=== PATIENT | male | born 1970 | race Caucasian/White ===

== ENCOUNTER 2019-07-21 06:23 | Observation (INO) ==
--- NOTE | 2019-07-12 13:17 | PAT Medication Instructions ---
Medication Instructions Date of Service July 12, 2019 Home Medications Medical Cannabis 1 dose UD Take morning of surgery With a small sip of water, OTHERWISE NOTHING TO EAT OR DRINK AFTER MIDNIGHT: Medical Cannabis 1 dose UD (if needed) Other Notes If you have any questions please call us at [phone] or [phone] or [phone] or [phone]
--- NOTE | 2019-07-13 14:12 | Anesthesiology Consultation ---
Date of Service July 13, 2019 Assessment & Plan (1) Encounter for pre-operative examination: Chart Review Chart Review: Acceptable Risk for Surgery (pending confirmed ekg) and Patient seen in Pre Admission Testing Teaching & Discussion Instructed NPO after midnight before surgery, except medications with 15 cc of water. Medication instructions provided according to the PAT guidelines. History Surgery Operation Date: 07/21/19 08:05 Proposed Procedures p Transurethral Resection of Bladder Tumor with or without Multiple Cup Biopsies of the Bladder, possible Mitomycin C - Manny Bustillo MD Height/Weight Height: 5 ft 6 in Weight: 62.5 kg Allergies Allergy/AdvReac Type Severity Reaction Status Date / Time No Known Allergies Allergy Verified 07/08/19 13:40 Medications Home Medications Medication Instructions Recorded Confirmed Last Taken Medical Marijuanna 1 dose UD 07/08/19 07/08/19 Unknown Past Medical History Medical History (Updated 07/13/19 @ 14:21 by Mandeep Hilliard) Anxiety Medical cannabis HS/PRN Hematuria BLADDER 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 CHRONIC BACK PAIN AND USES [employer] AND WILL BRING IN CARD Exercise / Class Metabolic Activity II 4-5 Yardwork/Stairs/Walk up hill (Denies CP or SOB with 1 FOS) Past Surgical History Surgical History No history of previous surgery Past Anesthesia History No Family Hx of Anesthesia Complications History of PONV No Hx of Motion Sickness Social History tobacco type: cigarettes Smoking cigarettes per day: 10-12 per day, weaning down Do You Dip or Chew Tobacco: No Smoking End Date: ATTEMPTING TO QUIT Hx Alcohol Use: Yes Alcohol Intake Frequency Comment: h/o heavy use, now occasional Hx Substance Use: Yes substance use type: marijuana (medical) Last Used Substance Other:: HAS A [employer] CARD Review of Systems Pt denies any recent chest pain, shortness of breath, palpitations, cough, fever or URI. Physical Exam Vital Signs BP: 152/92 P: 61bpm SPO2: 93% RA T: 98.5 F R: 12 ENMT Mouth: + dental restorations (full upper), + chipped teeth (bottom L molar) and + loose teeth (lower incisors, can wiggle with tongue) Thyromental Distance: < 3.5 Finger Breadths (3) Mallampati Class: I Neck normal visual inspection; neck extension not limited Respiratory normal respiratory effort Auscultation: lungs clear to auscultation bilaterally Cardiovascular Rate/Rhythm: regular rate and regular rhythm Heart Sounds: no murmur Testing Laboratory Results 07/13/19 14:02 07/13/19 14:02 Urine Color Yellow 07/13/19 14:02 Urine Appearance Clear (Clear) 07/13/19 14:02 Urine pH 6.0 (4.5-7.5) 07/13/19 14:02 Ur Specific [place] > 1.045 (1.000-1.030) H 07/13/19 14:02 Urine Protein Negative (Negative) 07/13/19 14:02 Urine Glucose (UA) Negative (Negative) 07/13/19 14:02 Urine Ketones Negative (Negative) 07/13/19 14:02 Urine Nitrite Negative (Negative) 07/13/19 14:02 Ur Leukocyte Esterase Negative (Negative) 07/13/19 14:02 Blood Type A Positive 07/13/19 14:02 Antibody Screen NEGATIVE 07/13/19 14:02 07/13/19 14:02 Urine Culture - Preliminary Urine,Clean Catch No growth - Less than 1,000 colonies/mL, Final report to follow. Electrocardiogram Date: 07/13/19 Findings: + SB @ (55bpm) Minimal voltage criteria for LVH, may be normal variant. Chest X-Ray Date: 07/13/19 Findings: + NAD
--- NOTE | 2019-07-13 14:39 | XRay Report ---
XR chest Pre-admission PA/Lat CLINICAL HISTORY: Preoperative evaluation. COMPARISON STUDY: No previous studies for comparison. FINDINGS: Lung volumes are normal. Lungs are clear. There is no pneumothorax or pleural effusion. Car diac size is normal. Mediastinal contours are normal. There is no evidence for pulmonary edema. Contr ast within visualized portions of the collecting systems is from recent contrast-enhanced CT. There i s an old healed mid shaft fracture of the right clavicle. Nipple shadows project over each hemithorax . IMPRESSION: No acute cardiopulmonary findings. ACT 112: Negative or not required by law. Electronically signed by: Dave Yeh M.D. 07/13/2019 2:38 PM
[2019-07-13 15:36] LABS: Appearance Urine Clear (Clear); Bilirubin Urine Negative (Negative); Blood Urine Negative (Negative); Color Urine Yellow; Glucose Urine UA Negative (Negative); Ketones Urine Negative (Negative); Leukocyte Esterase Urine Negative (Negative); Nitrite Urine Negative (Negative); Protein Urine Negative (Negative); Specific Gravity Urine > 1.045 (1.000-1.030); Urobilinogen Urine Negative (Negative)
[2019-07-13 15:44] LABS: BUN Creatinine Ratio 12.8 (10-20); Calcium 9.2 mg/dl (8.5-10.1); Creatinine Clr Calc Pharmacy 87.8 ml/min; Est GFR (African American) 115.1; Est GFR (Non-African American) 99.3; Potassium 4.4 mmol/L (3.5-5.1)
[2019-07-13 16:08] LABS: Basophils # (auto) 0.03 K/uL (0-0.2); Basophils % (auto) 0.3 %; Eosinophils # (auto) 0.15 K/uL (0-0.5); Eosinophils % (auto) 1.7 %; Hematocrit (blood only) 50.5 % (42-52); Hemoglobin 17.9 g/dL (14.0-18.0); Immature Granulocytes # (auto) 0.01 K/uL (0.00-0.02); Immature Granulocytes % (auto) 0.1 %; Lymphocytes # (auto) 2.58 K/uL (1.2-3.4); Lymphocytes % (auto) 28.8 %; Mean Corpuscular Hemoglobin 32.5 pg (25-34); Mean Corpuscular Hgb Conc 35.4 g/dL (32-36); Mean Corpuscular Volume 91.7 fL (80-100); Mean Platelet Volume 10.1 fL (7.4-10.4); Monocytes % (auto) 6.7 %; Neutrophils # (auto) 5.59 K/uL (1.4-6.5); Neutrophils % (auto) 62.4 %; Platelet Count 239 K/uL (130-400); RDW Standard Deviation 47.4 fL (36.4-46.3); Red Blood Count 5.51 M/uL (4.7-6.1); White Blood Count 8.96 K/uL (4.8-10.8)
--- NOTE | 2019-07-13 23:45 | Electrocardiogram Report ---
Test Reason : Blood Pressure : / mmHG Vent. Rate : 055 BPM Atrial Rate : 055 BPM P-R Int : 152 ms QRS Dur : 090 ms QT Int : 438 ms P-R-T Axes : 078 076 066 degrees QTc Int : 419 ms Sinus bradycardia Minimal voltage criteria for LVH, may be normal variant Borderline ECG No previous ECGs available Confirmed by Rao Dorsey ([id number]) on 07/13/2019 11:44:35 PM Referred By: Manny Bustillo Confirmed By:Rao Dorsey
[~2019-07-21 06:23] MED LIST: GENTAMICIN SULFATE 80 MG in DEXTROSE 5% 100 ML IV SCH; LR 15ML/HR IV SCH
--- NOTE | 2019-07-21 07:11 | History & Physical Bridge Note ---
Date of Service July 21, 2019 History & Physical Bridge Note I have examined the patient, reviewed the History & Physical and in the interval since the performance of the History & Physical I have noted the following changes of clinical significance: no changes noted
[2019-07-21] MEDS ORDERED: LIDOCAINE HCL 2% 2 ML VIAL/AMP(20MG/ML) INFIL ONE (08:32)
[2019-07-21] MEDS ORDERED: DEXAMETHASONE SOD INJ 4 MG/ML VIAL ONE (08:32)
[2019-07-21] MEDS ORDERED: ONDANSETRON INJ 2 MG/ML 2 ML VIAL ONE (08:32)
[2019-07-21] MEDS ORDERED: PROPOFOL IV EMULSION 10 MG/ML 20 ML VIAL IV ONE (08:32)
[2019-07-21] MEDS ORDERED: fentaNYL citrate 100 MCG/2 ML VIAL ONE ×2 (08:32→09:36)
[2019-07-21] MEDS ORDERED: MIDAZOLAM HCL 1 MG/ML 2ML VIAL ONE (08:33)
[2019-07-21] MEDS ORDERED: SUCCINYLCHOLINE CHLORIDE 20 MG/ML 10 ML VIAL ONE (09:09)
[2019-07-21] MEDS ORDERED: ROCURONIUM BROMIDE 10 MG/ML 5 ML VIAL ONE (09:09)
[2019-07-21] MEDS ORDERED: LARYING-O-JET KIT (LTA) ONE (09:24)
[2019-07-21] MEDS ORDERED: BELLADONNA/OPIUM SUPP 60 MG SUPP PR ONE (10:10)
--- NOTE | 2019-07-21 10:16 | Post Operative Brief Note ---
PG Immediate Post Op with CF Date of Surgery July 21, 2019 Pre & Post Diagnosis Operation Date: 07/21/19 08:15 Pre-Op Diagnosis: Gross Hematuria, Bladder Mass Post-Op Diagnosis: Gross Hematuria, Bladder Mass I identified the patient and participated in the time-out.: Yes Procedure Operation Date: 07/21/19 08:15 Actual Procedures p Transurethral Resection of Bladder Tumor with Multiple Cup Biopsies of the Bladder(Not Applicable) - Manny Bustillo MD Surgeon Manny Bustillo MD [employer] none Estimated Blood Loss 30 Findings Consistent with Post-Op Diagnosis Specimens Specimen Description: A: Superficial Bladder Tumor B. Base Bladder Tumor
[2019-07-21] MEDS ORDERED: ePHEDrine sulfate 50 MG/ML AMP IV PRN (11:02)
[2019-07-21] MEDS ORDERED: ATROPINE SULFATE 0.1 MG/ML 10ML SYR IV PRN (11:02)
[2019-07-21] MEDS ORDERED: fentaNYL citrate 100 MCG/2 ML VIAL IV PRN (11:02)
[2019-07-21] MEDS ORDERED: ONDANSETRON INJ 2 MG/ML 2 ML VIAL IV PRN (11:33)
[2019-07-21] MEDS ORDERED: ACETAMINOPHEN 325 MG TAB PO PRN (11:33)
[2019-07-21] MEDS ORDERED: PHENAZOPYRIDINE HCL 200 MG TAB PO PRN (11:33)
[2019-07-21] MEDS ORDERED: OXYCODONE HCL IR 5 MG TAB (IMMEDIATE RELEASE) PO PRN ×2 (11:33)
[2019-07-21] MEDS ORDERED: MoRPHine SULFATE 4 MG/ML 1 ML CARP\\VIAL IV PRN (11:39)
--- NOTE | 2019-07-21 11:46 | Anesthesiology Progress Note ---
Date of Service July 21, 2019 Anesthesia Post Procedure Vital Signs Vital Signs: Temp Pulse Pulse Resp BP BP Pulse Ox 07/21/19 11:15 36.4 C L 56 L 16 111/73 95 07/21/19 11:05 59 L 20 110/74 95 07/21/19 10:55 76 20 113/76 97 07/21/19 10:45 62 20 120/83 95 07/21/19 10:35 66 16 123/89 100 07/21/19 10:29 36.2 C L 69 19 133/91 100 07/21/19 07:00 36.6 C 58 L 18 121/77 99 Transfer of Care Handoff Completed per policy Notes Mental Status: alert / awake / arousable and participated in evaluation Patient Amnestic to Procedure: Yes Nausea / Vomiting: adequately controlled Pain: adequately controlled Airway Patency, RR, SpO2: stable & adequate BP & HR: stable & adequate Hydration State: stable & adequate Anesthetic Complications: no major complications apparent and Pt Satisfied with anesthetic care
[2019-07-21] MEDS: LACTATED RINGER'S 1,000 ML IV SCH ×2 (12:05→17:29)
--- NOTE | 2019-07-21 12:34 | Operative Report ---
DATE OF OPERATION: 07/21/2019 PREOPERATIVE DIAGNOSIS: Bladder mass. POSTOPERATIVE DIAGNOSIS: Bladder mass. PROCEDURE PERFORMED: TURBT. HISTORY OF PRESENTATION: The patient is a 48-year-old male who has had hematuria off and on for over 9 months, who presents now for definitive treatment after having cystoscopy in my office. I did schedule for TURBT prior to a CAT scan which was performed and did show a renal lesion that was consistent with an adenoma 2.3 cm on the left side. He also had a question of something in the upper pole ureter that was low suspicion by the radiologist and will be followed with a followup CT scan to assess the adrenal gland. DESCRIPTION OF THE PROCEDURE: The patient was taken to the operating room where general anesthesia was administered. He had Venodyne stockings placed prior to this and was given gentamicin prior to this. He was placed in dorsal lithotomy position, prepped and draped in the usual sterile fashion. A cystoscope was passed to assess the bladder tumor which appeared to be about 3 cm in diameter and somewhat sessile. This ureteral orifices were not involved, although was in the posterior wall of the bladder. Resection was performed, then cup biopsy forceps were taken at the base of the tumor. Multiple cup biopsy forceps were taken to try to avoid cautery effect to make sure we got some muscle in the specimen that we did not have cautery effect. There were several bleeders during the course of these biopsies that were fulgurated. At the end of the procedure, there was no evidence of any significant bleeding. Photos were taken pre and post-procedure and the patient had a 22-Malay Silva catheter placed. Urine was clear and he was transferred to the recovery room in stable condition. I attest to the content of the Intraoperative Record and any orders documented therein. Any exception s are noted below.
[2019-07-21] MEDS: DOCUSATE SODIUM 100 MG CAP PO SCH (20:26)
[2019-07-21] MEDS: FAMOTIDINE 10 MG TABLET PO SCH (20:26)
[2019-07-21] MEDS: CIPROFLOXACIN 500 MG TAB PO SCH (20:26)
[2019-07-21] MEDS: MoRPHine SULFATE 2 MG/ML CARP IV PRN (20:34)
[2019-07-22] MEDS: LACTATED RINGER'S 1,000 ML IV SCH (00:43)
[2019-07-22] MEDS: MoRPHine SULFATE 2 MG/ML CARP IV PRN (00:54)
[2019-07-22 05:49] LABS: Hematocrit (blood only) 44.9 % (42-52); Hemoglobin 15.6 g/dL (14.0-18.0)
--- NOTE | 2019-07-22 07:36 | Anesthesiology Progress Note ---
Date of Service July 22, 2019 Anesthesia Post Procedure Vital Signs Vital Signs: Temp Pulse Pulse Pulse Resp BP BP 07/22/19 07:26 36.7 C 51 L 14 121/77 07/22/19 03:08 36.8 C 55 L 14 112/63 07/21/19 23:07 36.8 C 60 14 126/68 07/21/19 19:11 37 C 51 L 16 125/69 07/21/19 15:23 36.7 C 57 L 16 120/73 07/21/19 13:30 54 L 16 125/76 07/21/19 12:32 57 L 16 117/69 07/21/19 12:09 48 L 16 122/76 07/21/19 11:30 36.4 C L 54 L 15 115/76 07/21/19 11:15 36.4 C L 56 L 16 111/73 07/21/19 11:05 59 L 20 110/74 07/21/19 10:55 76 20 113/76 07/21/19 10:45 62 20 120/83 07/21/19 10:35 66 16 123/89 07/21/19 10:29 36.2 C L 69 19 133/91 Pulse Ox 07/22/19 07:26 96 07/22/19 03:08 93 07/21/19 23:07 94 07/21/19 19:11 96 07/21/19 15:23 95 07/21/19 13:30 97 07/21/19 12:32 96 07/21/19 12:09 96 07/21/19 11:30 07/21/19 11:15 95 07/21/19 11:05 95 07/21/19 10:55 97 07/21/19 10:45 95 07/21/19 10:35 100 07/21/19 10:29 100 Pain Intensity Penis: Pain Intensity: 3 Notes Mental Status: alert / awake / arousable and participated in evaluation Patient Amnestic to Procedure: Yes Nausea / Vomiting: adequately controlled Pain: adequately controlled Airway Patency, RR, SpO2: stable & adequate BP & HR: stable & adequate Hydration State: stable & adequate Anesthetic Complications: Pt Satisfied with anesthetic care
[2019-07-22] MEDS: CIPROFLOXACIN 500 MG TAB PO SCH (08:39)
[2019-07-22] MEDS: FAMOTIDINE 10 MG TABLET PO SCH (08:39)
[2019-07-22] MEDS: DOCUSATE SODIUM 100 MG CAP PO SCH (08:39)
--- NOTE | 2019-07-22 08:41 | Urology Progress Note ---
Date of Service July 22, 2019 Assessment & Plan (1) Bladder mass: 48 year-old male status post TURBT on 07/21/[address] Bustillo due to bladder mass. -POD #1 s/p TURBT -Doing well without complications. -Continue oral hydration and ambulation. -D/C puri catheter this am. -If pain controlled and voiding without difficulty, plan to discharge home today. -Follow-up appointment scheduled August 02, [address] Bustillo. -Patient in agreement with plan. (2) Gross hematuria: Subjective 48 year-old male patient POD #1 TURBT due to bladder mass and gross hematuria. Chart reviewed: Afebrile WBC 8.96 Hgb 15.6 Creatinine 0.91 Morphine IV administered for pain. Patient alert and feeling well today. Tolerating regular diet without nausea, vomiting, or diarrhea. Denies fevers or chills. States he was up ambulating independently without dizziness. Pain is rated a 3 out of 10 in his medial abdomen. Does report discomfort in tip of penis due to Puri catheter - required IV morphine overnight to help with this. Denies hematuria. He is requesting to be discharged today. Denies additional concerns at time of examination. Review of Systems Constitutional: as per Subjective / HPI; no fever and no chills Gastrointestinal: as per Subjective / HPI; no nausea and no vomiting Genitourinary: + as per Subjective / HPI Physical Exam Constitutional: well developed and well nourished; no acute distress and not ill appearing Respiratory: normal respiratory effort and able to speak in complete sentences; no respiratory distress and no audible wheezes Gastrointestinal (Abdomen): Inspection/Auscultation: abdomen normal to inspection; abdomen not distended Percussion/Palpation: abdomen soft; abdomen nontender and no guarding Psychiatric: Orientation: alert, oriented x 3 and cooperative Affect: euthymic affect Genitourinary: no CVA tenderness Puri catheter intact draining clear yellow urine. Results & Data Vital Signs (Past 12 Hours) Vital Signs Temp Pulse Resp BP Pulse Ox 07/22/19 07:26 36.7 C 51 L 14 121/77 96 07/22/19 03:08 36.8 C 55 L 14 112/63 93 07/21/19 23:07 36.8 C 60 14 126/68 94 PG Care Time/CCT Total # of Minutes Spent Total Time Spent with Patient: Total time spent is greater than 50% in coordination of care (as documented) at patient's floor/unit and/or counseling patient: Coding Level of Care Code None Diagnoses Bladder mass N32.89 Gross hematuria R31.0 Comment postop
--- NOTE | 2019-07-22 12:35 | Discharge Summary ---
Date of Service July 22, 2019 Admission HPI Per Admitting Provider Gross hematuria with bladder mass Principal Diagnosis Bladder mass Discharge Data Allergies Allergy/AdvReac Type Severity Reaction Status Date / Time No Known Allergies Allergy Verified 07/21/19 06:58 Procedures Performed Operation Date: 07/21/19 08:15 Actual Procedures p Transurethral Resection of Bladder Tumor with Multiple Cup Biopsies of the Bladder(Not Applicable) - Manny Bustillo MD Hospital Course (1) Bladder mass: Admitted status post cystoscopy and TURBT - see operative note for details. Uneventful course during hospital stay. Silva catheter overnight - passed voiding trial. Discharged home on POD#1. Total Time Total Time Spent Total Time Spent (In Minutes): 10 minutes Total Time Includes: Examination of the Patient and Discharge Planning Discharge Plan Discharge Items Patient Disposition: Home - Self-Care Reason For Visit: Gross Hematuria, Bladder Mass Discharge Diagnosis: Gross hematuria, bladder mass Condition on Discharge: Good Activity: Resume your previous activity Lifting: No more than 25 pounds Bathing: No limitations Sexual Activity: Wait until after follow-up appointment Exercise/Sports: Wait until after follow-up appointment Driving/Machine Use: Do not drive while taking prescription narcotics. Non-emergency contact: Primary Care Provider and Urologist Call non-emergency contact if: you have any medication questions, your pain is not controlled, your pain is concerning for you and your temperature is above 101.5 Follow-up/Referrals: Manny Bustillo MD [Physician] - 08/02/19 4:40 pm Morro De Guzman M.D. [Primary Care Provider] - Diet: Regular Addtl Attending Provider Instructions: Please take all medications as prescribed and keep all follow-ups as scheduled. Please call our office at [phone] with any questions, concerns or need to reschedule appointments for any reason. We are happy to assist you. Tips for your recovery at home: Dont be alarmed by brownish or reddish blood or clots in your urine. This is a result of the procedure. However, if this does not improve after 1 week, please contact our office. Drink plenty of fluids during the day (enough to keep your urine very light colored). This will help keep a healthy flow of urine. Do not lift >25 lbs until your followup Avoid constipation. Please use a stool softener (Colace) for the first two weeks after your procedure Be sure to finish the antibiotics as prescribed. If you go home with a catheter, please wash tubing where it enters your body twice daily with mild soap (Dove or Dial). Once your catheter is removed, expect some blood in your urine and some burning when you urinate. You should have an appointment to have this removed, if you do not please call our office to arrange. When to call [facility] at [phone]: Your urine contains heavy blood clots You are constantly leaking urine Fever of 101F or higher, chills, nausea, or vomiting Your pain is not relieved with medication Pending Studies at Discharge: Yes Studies:: Pathology Stand-Alone Forms: [facility], Opioid Pain Management, Smoking Cessation Medications and DC Order Prescriptions: New oxycodone-acetaminophen [Percocet] 5-325 mg tablet 1 tab PO TID PRN (Reason: pain) Qty: 6 RF: 0 docusate sodium [Colace] 100 mg capsule 100 mg PO BID Qty: 60 RF: 0 nitrofurantoin monohyd/m-cryst [Macrobid] 100 mg capsule 100 mg PO BID 5 Days Qty: 10 RF: 0 Continued Medical Marijuanna 1 dose UD RF: 0 Discharge Orders: Discharge Order (Routine); Ordered 07/22/19 Ordered By: Barbara Phillip/Other Patient Handouts: Surgery Prevent DVT After Admission Data Admit Date/Time: 07/21/19 09:30 Attending Provider: Manny Bustillo Admit Provider: Manny Bustillo Primary Care Provider: Morro De Guzman Other Interventions: Discharge Summary Assessment (RN) Last Done: 07/22/19 12:15 Coding Level of Care Code D/C Day Management <30 mins Diagnoses Bladder mass N32.89
== END 2019-07-22 12:54 | disposition home or self-care (01) ==
LOC: PAT 06:23 → INTOOBSV 09:30 → 3W 09:30

== ENCOUNTER 2020-03-04 20:50 | Inpatient (IN) ==
--- NOTE | 2020-03-04 21:13 | Emergency Department Note ---
Impression & Plan Cystitis, Hydroureteronephrosis, Leukocytosis, Encounter for smoking cessation counseling ED Provider Note NAME: LYDIA JASMINE AGE: 49 SEX: M : 1970 ARRIVES VIA: Walk-In INFORMANT: Patient, ED PROVIDER(S): Bong Espinosa MD Chief Complaint: Groin pain, constipation HPI: Patient does present with groin pain and constipation. Patient states that he has had some symptoms for approximately 8 weeks. The patient states initially he did have some groin pain and some associated constipation. Patient states he was treated by his primary surgeon who Hever who constructed he is neobladder and was completed a course of ciprofloxacin which would have been completed approximate 4 weeks ago. The patient did have abatement of his symptoms but they have progressively returned and gotten worse to where he does have some right-sided lower quadrant and groin discomfort. Patient denies any fevers or chills. Patient states that he has been urinating reasonably well. The patient does have occasional bouts of incontinence at nighttime but does have normal sensation during the day. Patient does admit to having some decreased stools. The patient has tried to take by mouth mag citrate and MiraLAX but this is caused him to vomit. Patient denies any recent trauma to the area. The patient does complain of some occasional soreness in his lower abdomen but denies any testicular or penile scrotal pain or swelling. Patient denies any bulges or masses noted over the abdomen. The patient does follow-up with Dr. Bustillo locally as well as his primary surgeon in [place]. ROS: See HPI for pertinent positives and negatives. A total of 10 systems were reviewed and otherwise negative. Past medical history: See below Surgical history: See below Social history: See below Physical Exam: GENERAL: Wearing a mask. NAD, non-toxic. EYE EXAM: Normal conjunctiva. PERRL, no anisocoria and EOM's grossly intact w/o pain. NECK: Supple, no nuchal rigidity, no adenopathy, non-tender. No signs of meningismus. LUNGS: Clear to auscultation. Normal chest wall mechanics. HEART: NSR, no MRG. ABDOMEN: Abdomen soft, right lower quadrant/groin discomfort without obvious bulges or masses noted, not peritonitic, negative obturator and psoas normo- active bowel sounds, no masses, no rebound or guarding. : Circumcised with no tenderness or swelling to the scrotum/testicles. BACK: No CVA TTP. SKIN: No rashes and no bruising. UPPER EXTREMITIES: Upper extremities are grossly normal. LOWER EXTREMITIES: Grossly normal, no edema. NEURO EXAM: A&O x3, cranial nerves II-XII grossly intact, normal speech, moves all 4 extremities on command w/o issue. Differential diagnoses: Appendicitis, testicular torsion, infections, diverticulitis, UTI, obstruction, mesenteric ischemia, aortic pathology, inflammatory bowel disease, renal colic, PUD, pancreatitis, biliary pathology, hernia, volvulus, constipation, as well as other pathologies. Course: Patient was seen and evaluated the bedside. Full history physical exam was performed. EKG: None Imaging Studies: CT abdomen pelvis with contrast: Mild atelectasis with normal liver spleen pancreas and gallbladder. Left adrenal mass noted which is stable. New interval left-sided hydroureteronephrosis. Postoperative changes seen within the mid abdomen. Mild diffuse distention of small bowel loops and cannot exclude ileus. Left ureter is seen traversing midline branches of the right to right sided ileal loop correlation with ureteral diversion surgery recommended. The left ureter seen with tip on images 5 [id number] and high density at this level cannot exclude a stricture or recurrent mass. Surgical clips demonstrated at the level of the pelvis, small bowel loops. Fluid collection suggested to represent urinary bladder seen. However if there has been prior resection of urinary bladder than this represent fluid collection or abscess not excluded. Unusual loop of small bowel or fluid collection at the level of the pelvis correlation with the type and time of surgery recommended. Degenerative disease at L5-S1 remainder of pelvic structures unremarkable. Cardiac monitoring: An order was placed for continuous cardiac monitoring. The monitor shows a rate of 89 with sinus rhythm. MDM: Patient was seen due to concern for groin/abdominal pain. Blood work was obtained along with urinalysis and CT abdomen pelvis. Patient does have a white count of 19 with a hemoglobin of 12. Platelet count is somewhat elevated at 566. Patient's kidney function is unremarkable with normal LFTs and lipase. Patient CT does show left-sided hydro-nephrosis and hydroureter. I did speak the on-call urologist Dr. Dominguez and explained that the patient did have significant hydroureteronephrosis and with a recent neobladder. He did state that if the patient truly had a stricture causing obstruction that creatinine would likely be elevated. Discussed that the patient is still urinating. The patient does not have left-sided CVA tenderness palpation. Patient is not septic as the patient has a normal heart rate blood pressure and temperature. Dr. Dominguez does not believe the patient would require transfer at this time and that this would be something that could be managed at this hospital. The patient would require a ureteral stent this may require transfer for this or for the possibility of percutaneous nephrostomy tubes. He does not believe that this would be necessary at this time. Patient was ordered Zosyn for empiric coverage at this time until urine cultures are more definitive. I did speak with the on-call hospitalist Dr. Davila who admitted the patient to the medicine service. I counseled patient on smoking cessation for 3 minutes. Treatment options discussed and resources provided. Patient was receptive. Past Med/Surg History Medical History Anxiety Medical cannabis HS/PRN Chronic back pain D/T HISTORY OF HERNIATED LOWER BACK Current smoker Hematuria Herniated disc HAD THIS FOR OVER 20 YEARS CHRONIC BACK PAIN AND USES MEDICAL MARIJUANNA AND WILL BRING IN CARD Insomnia Medical marijuana use Port-A-Cath in place (09/02/19) Mediport Insertion Dr. 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 Required: No Beliefs That Will Affect Care: None marital status: Current Living Situation: Family current occupational status: employed current occupation: [employer] Feels Safe at Home: Yes Allergies Allergies Allergy/AdvReac Type Severity Reaction Status Date / Time No Known Allergies Allergy Verified 03/04/20 22:37 Home Meds Home Medications Medication Instructions Recorded Confirmed acetaminophen [Tylenol Extra 1,000 mg PO Q6H PRN 12/20/19 03/04/20 Strength] Marijuana Flower/Vap 1 dose INHALATION UD PRN 03/04/20 03/04/20 Tintress Oil 1 dose PO BID 03/04/20 03/04/20 Results & Data (ED) Vital Signs Vital Signs - 24 hr 03/04/20 21:01 03/04/20 22:04 03/04/20 22:30 Temperature 37.2 C Temperature Source Oral Pulse Rate 89 70 72 Pulse Rate from SpO2 Sensor 70 72 Pulse Rhythm Regular Pulse Strength Normal Respiratory Rate 16 16 15 Respiratory Effort / Characteristics Non-Labored Respiratory Depth Normal Respiratory Pattern Regular Blood Pressure 122/82 120/73 110/77 Blood Pressure Mean 95 84 86 Blood Pressure Position Sitting Pulse Oximetry 97 96 98 Oxygen Delivery Method Room Air Room Air Sepsis Recent Fever Within 48 Hours No Sepsis New/Unexplained Change in Mental Status N/A Sepsis Action Taken by Nursing No Action Required 03/04/20 23:00 03/04/20 23:30 03/05/20 00:00 Temperature Temperature Source Pulse Rate 72 70 71 Pulse Rate from SpO2 Sensor 72 70 71 Pulse Rhythm Pulse Strength Respiratory Rate 24 24 24 Respiratory Effort / Characteristics Respiratory Depth Respiratory Pattern Blood Pressure 124/79 113/71 115/74 Blood Pressure Mean 83 83 88 Blood Pressure Position Pulse Oximetry 97 97 98 Oxygen Delivery Method Room Air Room Air Room Air Sepsis Recent Fever Within 48 Hours Sepsis New/Unexplained Change in Mental Status Sepsis Action Taken by Halfway Medications Current Medication List: was personally reviewed by me Laboratory Data Attestation: I reviewed the patient's lab results. Result diagrams: 03/04/20 21:45 03/04/20 21:45 Lab Results 03/04/20 03/04/20 03/04/20 Range/Units 21:45 21:45 23:10 WBC 19.79 H (4.8-10.8) K/uL RBC 4.65 L (4.7-6.1) M/uL Hgb 12.7 L (14.0-18.0) g/dL Hct 38.2 L (42-52) % MCV 82.2 (80-100) fL MCH 27.3 (25-34) pg MCHC 33.2 (32-36) g/dL RDW Std Deviation 49.4 H (36.4-46.3) fL RDW Coeff of Richard 16.3 H (11.5-14.5) % Plt Count 566 H (130-400) K/uL MPV 8.7 (7.4-10.4) fL Immature Gran % (Auto) 0.5 % Neut % (Auto) 84.5 % Lymph % (Auto) 7.7 % [place] % (Auto) 6.6 % Eos % (Auto) 0.6 % Baso % (Auto) 0.1 % Neut # (Auto) 16.73 H (1.4-6.5) K/uL Lymph # (Auto) 1.53 (1.2-3.4) K/uL Pacific # (Auto) 1.30 H (0.11-0.59) K/uL Eos # (Auto) 0.12 (0-0.5) K/uL Baso # (Auto) 0.02 (0-0.2) K/uL Immature Gran # (Auto) 0.09 H (0.00-0.02) K/uL Sodium 133 L (136-145) mmol/L Potassium 3.5 (3.5-5.1) mmol/L Chloride 98 (98-107) mmol/L Carbon Dioxide 25 (21-32) mmol/L Anion Gap 10.0 (3-11) BUN 19 H (7-18) mg/dl Creatinine 1.09 (0.6-1.4) mg/dl Est Cr Clr Drug Dosing 61.6 ml/min Est GFR ( Amer) 91.9 Est GFR (Non-Af Amer) 79.3 BUN/Creatinine Ratio 17.0 (10-20) Glucose 110 H (70-99) mg/dl Calcium 9.6 (8.5-10.1) mg/dl Total Bilirubin 0.4 (0.2-1) mg/dl AST 25 (15-37) U/L ALT 41 (12-78) U/L Alkaline Phosphatase 97 (45-117) U/L Total Protein 8.9 H (6.4-8.2) gm/dl Albumin 3.0 L (3.4-5.0) gm/dl Globulin 5.9 H (2.5-4.0) gm/dl Albumin/Globulin Ratio 0.5 L (0.9-2) Lipase 84 (73-393) U/L Urine Color Yellow Urine Appearance Turbid A (Clear) Urine pH 6.0 (4.5-7.5) Ur Specific [place] 1.015 (1.000-1.030) Urine Protein 1+ H (Negative) Urine Glucose (UA) Negative (Negative) Urine Ketones Negative (Negative) Urine Blood 2+ H (Negative) Urine Nitrite Positive A (Negative) Urine Bilirubin Negative (Negative) Urine Urobilinogen Negative (Negative) Ur Leukocyte Esterase 3+ H (Negative) Urine WBC (Auto) >30 H (0-5) /hpf Urine RBC (Auto) 0-4 (0-4) /hpf U Hyaline Cast (Auto) 0 (0-5) /lpf U Epithel Cells (Auto) 5-10 H (0-5) /lpf Urine Bacteria (Auto) 1+ H (Negative) Administered Medications Discontinued Medications Sodium Chloride (Nss) 500 mls @ 999 mls/hr IV .Q31M ANASTASIA Stop: 03/04/20 22:00 Last Infusion: 03/04/20 23:12 Dose: 0 mls/hr Documented by: [id number] Admin: 03/04/20 22:00 Dose: 999 mls/hr Documented by: [id number] Piperacillin Sod/Tazobactam Sod (Zosyn) 4.5 gm in 120 mls @ 240 mls/hr IV NOW ONE Stop: 03/05/20 00:10 Last Admin: 03/05/20 00:11 Dose: 240 mls/hr Documented by: [id number] Ioversol (Ioversol 100ml) 94 ml IV ONCE ONE Stop: 03/04/20 22:54 Last Admin: 03/04/20 22:54 Dose: 94 ml Documented by: [id number] Metoclopramide HCl (Metoclopramide Hcl Inj 5 Mg/Ml 2 Ml Vial) 10 mg IV NOW STA Stop: 03/04/20 21:25 Last Admin: 03/04/20 21:59 Dose: 10 mg Documented by: [id number] Morphine Sulfate (Morphine Sulfate 4 Mg/Ml 1 Ml Carp\Vial) 4 mg IV NOW STA Stop: 03/04/20 21:25 Last Admin: 03/04/20 21:59 Dose: 4 mg Documented by: [id number] Discharge Plan Visit Data Chief Complaint: GI Assessment Stated Complaint: STOMACH PAIN ED Provider: Jesús,Bong D. Discharge Problem: Cystitis, Hydroureteronephrosis, Leukocytosis, Encounter for smoking cessation counseling Forms Stand Alone Forms: [employer] Prescriptions Prescriptions: No Action Marijuana Flower/Vap 1 dose inhalation UD PRN (Reason: Anxiety) RF: 0 Tintress Oil 1 dose PO BID RF: 0 acetaminophen [Tylenol Extra Strength] 500 mg Tablet 1,000 mg PO Q6H PRN (Reason: Pain) RF: 0 Discharge Problem: Leukocytosis Qualifiers: Leukocytosis type: unspecified Qualified Code(s): D72.829 - Elevated white blood cell count, unspecified
[2020-03-04] MEDS ORDERED: METOCLOPRAMIDE HCL INJ 5 MG/ML 2 ML VIAL IV STA (21:24)
[2020-03-04] MEDS ORDERED: MoRPHine SULFATE 4 MG/ML 1 ML CARP\\VIAL IV STA (21:24)
[2020-03-04] MEDS ORDERED: SODIUM CHLORIDE 0.9% 500 ML IV SCH (21:30)
[2020-03-04 22:18] LABS: Basophils # (auto) 0.02 K/uL (0-0.2); Basophils % (auto) 0.1 %; Eosinophils # (auto) 0.12 K/uL (0-0.5); Eosinophils % (auto) 0.6 %; Hematocrit (blood only) 38.2 % (42-52); Hemoglobin 12.7 g/dL (14.0-18.0); Immature Granulocytes # (auto) 0.09 K/uL (0.00-0.02); Immature Granulocytes % (auto) 0.5 %; Lymphocytes # (auto) 1.53 K/uL (1.2-3.4); Lymphocytes % (auto) 7.7 %; Mean Corpuscular Hemoglobin 27.3 pg (25-34); Mean Corpuscular Hgb Conc 33.2 g/dL (32-36); Mean Corpuscular Volume 82.2 fL (80-100); Mean Platelet Volume 8.7 fL (7.4-10.4); Monocytes % (auto) 6.6 %; Neutrophils # (auto) 16.73 K/uL (1.4-6.5); Neutrophils % (auto) 84.5 %; Platelet Count 566 K/uL (130-400); RDW Coefficient of Variation 16.3 % (11.5-14.5); RDW Standard Deviation 49.4 fL (36.4-46.3); Red Blood Count 4.65 M/uL (4.7-6.1); White Blood Count 19.79 K/uL (4.8-10.8)
[2020-03-04 22:35] LABS: Calcium 9.6 mg/dl (8.5-10.1); Creatinine Clr Calc Pharmacy 61.6 ml/min; Est GFR (African American) 91.9; Est GFR (Non-African American) 79.3; Potassium 3.5 mmol/L (3.5-5.1)
[2020-03-04 22:38] LABS: Albumin Globulin Ratio 0.5 (0.9-2); Bilirubin,Total 0.4 mg/dl (0.2-1); Globulin 5.9 gm/dl (2.5-4.0); Total Protein 8.9 gm/dl (6.4-8.2)
[2020-03-04] MEDS ORDERED: IOVERSOL 100ml IV ONE (22:53)
[2020-03-04 23:27] LABS: Appearance Urine Turbid (Clear); Bacteria Urine Automated 1+ (Negative); Bilirubin Urine Negative (Negative); Blood Urine 2+ (Negative); Cast Urine Automated 0 /lpf (0-5); Color Urine Yellow; Glucose Urine UA Negative (Negative); Ketones Urine Negative (Negative); Leukocyte Esterase Urine 3+ (Negative); Nitrite Urine Positive (Negative); Protein Urine 1+ (Negative); RBC Urine Automated 0-4 /hpf (0-4); Specific Gravity Urine 1.015 (1.000-1.030); Urobilinogen Urine Negative (Negative); WBC Urine Automated >30 /hpf (0-5)
[2020-03-04] MEDS ORDERED: PIPERACILL/TAZOBAC CONSULT ACTIVE PRN (23:41)
[2020-03-04] MEDS ORDERED: PIPERACILLIN/TAZOBACTAM 4.5 GM/120 ML BAG IV ONE (23:41)
--- NOTE | 2020-03-05 02:02 | History & Physical Report ---
Date of Service March 05, 2020 Assessment & Plan (1) Cystitis: Pawan Wilson is a 49 year old man with bladder cancer s/p chemotherapy and bladder and prostatectomy and neobladder formation who is here today with abdominal pain and vomiting after eating Abdominal pain, nausea, vomiting, constipation Patient appears to have a prolonged post op ileus Will manage conservatively for now, does not appear to be a full SBO Will make NPo and rehydrate with LR at 125 for now sips of water okay If tolerating sips of water and ice chips can advance to clear liquids, then slowly advance as tolerated Patient not having a great deal of symptoms at the moment, no need for decompression at this time but discussed the option and possiblity of placing an NG tube with him. zofran prn for nausea, toradol for pain control (Will try to limit opiate pain medication to promote intestinal transit) Hydroureteronephrosis with Cystitis New since last scan severe Differential including stricture at newly created junction with neobladder or new mass. Creatinine still within normal limits, BUN slightly elevated likely secondary to dehydration from Ileus Urology contacted and wish to see patient tomorrow Zosyn for UTI Will hydrate with IV LR at 125/hour Bladder Cancer Patient is done with chemotherapy and surgery and is just in a surveillance state for now. CT showing mass on adrenal gland, which appears to be stable compared to previous exam Patient is doing better, feels stronger, has gone back to work F/E/N: LR 125 mls/hour sips of water DVT PPx: Lovenox Dispo: Admit for urology evaluation and conservative management of prolonged post op ileus Full Code (2) Hydroureteronephrosis: (3) Leukocytosis: (4) Encounter for smoking cessation counseling: (5) Medical marijuana use: (6) Current smoker: (7) Ileus: History of Present Illness Chief Complaint: Abdominal Pain and vomiting with food Primary Care Provider: Morro De Guzman Pawan Wilson is a 49 year old man with a past medical history significant for bladder cancer diagnosed in June of this year. He has undergone chemotherapy and neobladder creation in November of this year. This was done in [facility] who handle the majority of his care, though he lives in [facility] and comes here for emergent care. His goals of care are curative and according to his oncologist he is done with chemotherapy and will just need surveillance scans to determine if he will need subsequent doses. Since the time of his procedure he has been dealing with difficulty passing stool, he has not had a normal bowel movement since the procedure and frequently gets constipated and has pain with food intake. He has tried to use daily miralax for this which has been moderately helpful. Over past few days he has begun to have worsening fatigue and abdominal pain, he left work early on Thursday and since that time has had difficulty with food. On thursday night he had pizza but this immediately caused him burning stomach pain and cramping. This continued for sometime and he was not able to pass stool. On Thursday patient continued to have this discomfort, tried further miralax to little avail. He then attempted an enema this morning but was unsuccessful in relieving his discomfort. He tried further miralax but just had a large amount of bilious emesis about a half hour after trying his oral laxative. This was his only episode of vomiting and it did partially relieve his discomfort. He denies fevers or chills, does endorse some smaller volumes of urination but does also have some discomfort in his groin area. When he had a post op infection in the past he also had this discomfort in his right groin area. Currently he is resting comfortably and pain is greatly decreased though he does feel his abdomen is fairly taught and patient does endorse mild discomfort to both his abdomen and his right groin. on admission to ED vitals WNL, labwork significant for an elevated white count, urinalysis suspicious for UTI, hypoalbuminemia at 3.0, elevated BUN normal creatinine. CT abdomen Pelvis showing mild diffuse distension of the small bowel suggestive of ileus as well as new left hydroureteronephrosis. Possible stricture or recurrent mass appeciated at Ureteral tip. Patient was given morphine and reglan and was referred to hospitalist team for admission. He is a current smoker, though he is only smoking a quarter pack per day down from a pack a day prior to surgery. He did quit briefly but has since relapsed. He also uses marijuana for anxiety and pain control. Has not drinken more than once or twice since surgery but would have several drinks per week prior to his diagnosis in June. No other drug use, lives with , full code. Allergies Allergy/AdvReac Type Severity Reaction Status Date / Time No Known Allergies Allergy Verified 03/04/20 22:37 Home Medications Home Medications Medication Instructions Recorded Confirmed Type acetaminophen [Tylenol Extra 1,000 mg PO Q6H PRN 12/20/19 03/04/20 History Strength] Marijuana Flower/Vap 2 dose INHALATION UD PRN 03/04/20 03/05/20 History Tintress Oil 1 dose PO BID 03/04/20 03/04/20 History Past Med/Surg History Medical History Anxiety Medical cannabis HS/PRN Chronic back pain D/T HISTORY OF HERNIATED LOWER BACK Current smoker Hematuria Herniated disc HAD THIS FOR OVER 20 YEARS CHRONIC BACK PAIN AND USES MEDICAL MARIJUANNA AND WILL BRING IN CARD Insomnia Medical marijuana use Port-A-Cath in place (09/02/19) Mediport Insertion Dr. Raymundo 09-02-19 Restless leg syndrome Surgical History (Updated 03/05/20 @ 17:44 by Barron Bowman) H/O total cystectomy History of bladder replacement History of cystoscopy BLADDER TUMOR REMOVED 07/21/19 (+CANCER) History of prostatectomy Family History Grandfather Cancer Social History Smoking Status: Current every day smoker Tobacco Type: Cigarettes Cigarettes Per Day: 10-12; Second Hand Exposure: Yes; Hx Alcohol Use: Yes Alcohol type: beer Hx Substance Use: Yes Last Used Substance Other:: HAS A MEDICAL MARIJUANNA CARD Substance Use Type Other:: medical marijuana card Preferred Language: Ecuadorean Communication Ability: Effective 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: No Beliefs That Will Affect Care: None marital status: Current Living Situation: Spouse current occupational status: employed current occupation: [employer] Feels Safe at Home: Yes Safety Concerns: Feels Safe At This Time Review of Systems Constitutional: + fatigue and + anorexia; no fever and no chills Respiratory: no cough, no dyspnea and no wheezing Cardiovascular: no chest pain, no dyspnea, no dyspnea on exertion, no palpitations, no syncope and no edema Gastrointestinal: + abdominal pain (As above), + nausea, + vomiting and + constipation Genitourinary: + difficulty urinating and + urinary frequency; no dysuria Physical Exam Physical Exam: Constitutional: Constitutional: + thin; no acute distress, not ill appearing, no altered me ntal status, no behavioral limitations and no language barrier Eyes: PERRL, conjunctivae normal, anicteric sclerae ENMT: Dry mucus membranes Respiratory: normal respiratory effort, lungs clear to auscultation Cardiovascular: RRR, no murmur, no edema Gastrointestinal (Abdomen): Inspection/Auscultation: + abdomen distended and normal bowel sounds (Markedly decreased bowel sounds) Percussion/Palpation: + abdomen tender (Globally tender); no guarding and abdomen not rigid Musculoskeletal: no cyanosis or clubbing, extremities motor strength 5/5 Neurologic: PERRL, EOMI, accommodation nl, no face palsy, no dysarthria Genitourinary: no testicular masses, no penis abnormality Patient with some tenderness to right groin area, negative for hernia on testicular/inguinal exam. Results & Data Results & Data ([facility]) Vital Signs (Past 12 Hours) Vital Signs Temp Pulse Resp BP Pulse Ox 03/05/20 00:00 71 24 115/74 98 03/04/20 23:30 70 24 113/71 97 03/04/20 23:00 72 24 124/79 97 03/04/20 22:30 72 15 110/77 98 03/04/20 22:04 70 16 120/73 96 03/04/20 21:01 37.2 C 89 16 122/82 97 Supervising Physician Co-Signing Physician Notes Attending addendum: I have physically seen this patient, have supervised the medical residents activities, and agree with the H&P unless as otherwise noted. Assessment and Plan: UTI/new left hydroureteronephrosis/bladder cancer- Follow urine culture and sensitivity Continue Zosyn 4.5 g IV every 8 hours begun in the ED. LR at 125 mils per hour Consult urology Ileus/abdominal pain, nausea and vomiting- N.p.o. IV fluids as noted above Bowel prep Zofran 4 mg IV every 6 hours PRN Consider Relistor subcu Remainder orders and notations as noted Resident Activity Tracking Resident Involvement: Resident Care Provided Care Provided: Adult Hospital Medicine (1) Leukocytosis Leukocytosis type: unspecified Qualified Code(s): D72.829 - Elevated white blood cell count, unspecified
[2020-03-05] MEDS ORDERED: PIPERACILL/TAZOBAC CONSULT ACTIVE PRN (03:03)
[2020-03-05] MEDS ORDERED: ACETAMINOPHEN 500 MG TAB PO PRN (03:03)
[2020-03-05] MEDS ORDERED: ONDANSETRON INJ 2 MG/ML 2 ML VIAL IV PRN (03:03)
[2020-03-05] MEDS ORDERED: POLYETHYLENE (MIRALAX) 17 GM PACK PO PRN ×2 (03:03→14:19)
[2020-03-05] MEDS: LACTATED RINGER'S 1,000 ML IV SCH ×2 (04:05→10:57)
[2020-03-05] MEDS: PIPERACILLIN/TAZOBACTAM 3.375 GM in DEXTROSE 5% 100 ML IV SCH ×3 (06:06→21:07)
[2020-03-05] MEDS: KETOROLAC TROMETHAMINE 15 MG/ML VIAL IV PRN ×2 (08:26→13:54)
[2020-03-05] MEDS: ENOXAPARIN INJ 40 MG/0.4 ML SYR SQ SCH (08:27)
--- NOTE | 2020-03-05 08:28 | Urology Consultation ---
Date of Consultation March 05, 2020 Assessment & Plan (1) Hydroureteronephrosis: Patient with significant severe left-sided hydronephrosis with hydroureter going down to the neobladder orthotopic diversion. Patient has been approximately 3 months postop from the radical cystectomy and neobladder formation. He has continued ongoing intermittent issues with bowel and ileus concerns as well as significant fatigue and overall abdominal pain since the procedure. He has drastically improved over this time per the patient but continues to have some pelvic discomfort and frequently deals with bloating likely related to bowel issues. Patient admitted and treated with broad-spectrum IV antibiotics for coverage of possible urinary infection. Also being treated with supportive care. Agree with this time management. Patient's imaging was reviewed interpreted by myself. Patient has significant hydronephrosis on the left side difficult to determine if this is due to drainage/obstruction issue versus reflux. Discussed these issues and concerns with patient. Also concerning that possibly reflux would lead to an a sending pyelonephritis versus an obstruction causing pyelonephritis. Discussed different options and plans moving forward. Patient will likely need 7 to 14 days of antibiotic for management of infection. We will have to wait cultures and sensitivities and try to de-escalate once available. We will continue to monitor. If concerned hydronephrosis is contributing to issues and swallowing clearance of infection, would need to consider possibly neph tube as access in main orthotopic diversion can be extremely difficult. At this point patient's creatinine is stable and he does seem to be drastically improving on IV antibiotics. We will plan to continue to monitor. Call if any changes or issues. Patient's complicated medical and surgical history was reviewed and summarized above all imaging was reviewed interpreted by myself. (2) Complicated urinary tract infection: History of Present Illness Attending Physician: Barron Hinton DO History of Present Illness New consultation for patient with UTI/Pyelo, discomfort, and ill feelings. Patient with history of a invasive bladder cancer who underwent radical cystectomy with neobladder construction done at [facility]. Patient had this procedure approximately 3 months ago. He is still in the postoperative period and still undergoing majority of healing. Patient has intermittent abdominal discomfort with some bowel related issues. He has been dealing with on again off again pelvic pain which has been bothersome and comes and goes. Patient developed sudden onset of pain into flank going down and radiating into groin and back in waves comes and goes. Can be severe at times. Had some of this immediately postoperatively but has continued to have issues and bother. He states that he empties well with the neobladder without major problems or significant issue. He had recently been on Cipro for a UTI. Discussed and reviewed patient's family history for any history of issues, infections, and disease. Also, discussed patient's medical/surgery history especially related to any history of urinary issues or stone disease. Patient was admitted and is undergoing observation with broad spectrum IV antibiotics. Allergies Allergy/AdvReac Type Severity Reaction Status Date / Time No Known Allergies Allergy Verified 03/04/20 22:37 Home Medications Home Medications Medication Instructions Recorded Confirmed Type acetaminophen [Tylenol Extra 1,000 mg PO Q6H PRN 12/20/19 03/04/20 History Strength] Marijuana Flower/Vap 1 dose INHALATION UD PRN 03/04/20 03/04/20 History Tintress Oil 1 dose PO BID 03/04/20 03/04/20 History Patient History Medical History Anxiety Medical cannabis HS/PRN Chronic back pain D/T HISTORY OF HERNIATED LOWER BACK Current smoker Hematuria Herniated disc HAD THIS FOR OVER 20 YEARS CHRONIC BACK PAIN AND USES MEDICAL MARIJUANNA AND WILL BRING IN CARD Insomnia Medical marijuana use Port-A-Cath in place (09/02/19) Mediport Insertion Dr. Raymundo 09-02-19 Restless leg syndrome Surgical History History of cystoscopy BLADDER TUMOR REMOVED 07/21/19 (+CANCER) Family History Grandfather Cancer Social History Smoking Status: Current every day smoker Tobacco Type: Cigarettes Cigarettes Per Day: 10-12; Second Hand Exposure: Yes; Hx Alcohol Use: Yes Alcohol type: beer Hx Substance Use: Yes Last Used Substance Other:: HAS A MEDICAL MARIJUANNA CARD Substance Use Type Other:: medical marijuana card Preferred Language: Kyrgyz Communication Ability: Effective Radiator Repairer Required: No Beliefs That Will Affect Care: None marital status: Current Living Situation: Spouse current occupational status: employed current occupation: [employer] Feels Safe at Home: Yes Safety Concerns: Feels Safe At This Time Review of Systems Review of Systems: All systems reviewed & are unremarkable except as noted in HPI & below Physical Exam Physical Exam: General: Alert and oriented x 3 in no acute distress. Patient is mildly cachectic. HEENT: Normocephalic Atraumatic. Inspection normal. Cranial Nerves 2-12 Grossly intact. Nares are clear. Neck is supple. Normal inspection of face. Normal inspection of neck. Neurologic: No deficits on inspection. Baseline for motor function and sensory. Psychologic: Normal affect. Respiratory: Nonlabored. No use of accessory muscles. No tachypnea or dyspnea. Cardiovascular: No tachycardia Skin: Tebbetts and Dry. No rashes or visible lesions. Extremities: Moving without issues. No motor deficits on inspection Lymphatics: No edema Abdomen: Healed wounds from recent major abdominal/pelvic surgery. Moderate distention without significant tenderness. Results & Data ([facility]) Vital Signs (Past 12 Hours) Vital Signs Temp Pulse Pulse Pulse Resp BP BP 03/05/20 06:42 37.4 C 70 20 113/68 03/05/20 03:30 36.8 C 71 18 119/79 03/05/20 02:30 66 24 122/74 03/05/20 02:00 70 24 105/67 03/05/20 01:30 69 24 107/67 03/05/20 01:00 76 13 121/71 03/05/20 00:30 74 23 03/05/20 00:00 71 24 115/74 03/04/20 23:30 70 24 113/71 03/04/20 23:00 72 24 124/79 03/04/20 22:30 72 15 110/77 03/04/20 22:04 70 16 120/73 03/04/20 21:01 37.2 C 89 16 122/82 Pulse Ox 03/05/20 06:42 98 03/05/20 03:30 97 03/05/20 02:30 97 03/05/20 02:00 97 03/05/20 01:30 97 03/05/20 01:00 98 03/05/20 00:30 98 03/05/20 00:00 98 03/04/20 23:30 97 03/04/20 23:00 97 03/04/20 22:30 98 03/04/20 22:04 96 03/04/20 21:01 97 PG Care Time/CCT Total # of Minutes Spent Total Time Spent with Patient: Total time spent is greater than 50% in coordination of care (as documented) at patient's floor/unit and/or counseling patient: Coding Level of Care Code 25382 Inpt Consult Level 5 Diagnoses Hydroureteronephrosis N13.30 Complicated urinary tract infection N39.0
--- NOTE | 2020-03-05 08:42 | CT Scan Report ---
ABDOMEN AND PELVIS CT WITH IV CONTRAST CT DOSE: 261.63 mGy.cm HISTORY: Acute right groin pain with reported constipation h/o fabiano-bladder, R groin pain constipat ion TECHNIQUE: Multiaxial CT images of the abdomen and pelvis were performed following the IV administrat ion of 94 cc of Optiray 320, A dose lowering technique was utilized adhering to the principles of AL JOHN. COMPARISON STUDY: CT abdomen and pelvis 07/13/2019 FINDINGS: Emphysema with mild bibasilar atelectasis. There is no pneumatosis or pneumoperitoneum. Imaged inferi or cardiac chambers are unremarkable. The spleen, pancreas and right adrenal gland are unremarkable. There is unchanged lesion of the left adrenal gland measuring 2.5 x 2.1 cm soft tissue attenuation. O n prior noncontrast study was demonstrated Hounsfield unit of 16. Liver is within normal limits. Ahn ncy of the hepatic and portal veins. Unremarkable right kidney. There is severe left-sided hydroureteronephrosis with delayed nephrogram. There are at least 3 nonobstructing calculi of the left kidney measuring up to 4 mm. Urothelial thick ening of the left ureter. Prior prostatectomy and cystectomy with ileal conduit/neobladder. There is abrupt narrowing of the distal left ureter which appears to be at the anastomosis, image 297 series 3 . There is mild wall thickening involving the ileal conduit. Additionally, there is wall thickening i nvolving the sigmoid and several loops of ileum within the pelvis. Caliber change involves a loop of ileum on image 269 series 3 with decompressed loops of distal ileum. There are several air and fluid- filled prominent nondilated loops of small bowel. Air-fluid levels of the right hemicolon. No high-gr vilma small bowel obstruction. The visualized appendix is nondilated. No drainable fluid collection. So ft tissues are unremarkable. The bones appear intact. Moderate disc space narrowing and spondylitic s purring at L5-S1. IMPRESSION: 1. Prior prostatectomy and cystectomy with ileal conduit/neobladder. There is severe left-sided hydro ureteronephrosis and delayed nephrogram with marked narrowing of the distal left ureter at the anasto motic site. No obstructing stone or lesion identified. Findings may be secondary to an occult obstruc ting lesion versus stricture. 2. Nonobstructing left nephrolithiasis. 3. Mild wall thickening involves several loops of small bowel within the pelvis and there are numerou s scattered small bowel air-fluid levels. Findings may be secondary to a nonspecific enteritis versus low-grade small bowel obstruction. 4. Additional findings as above. ACT 112: Negative or not required by law. The above report was generated using voice recognition software. It may contain grammatical, syntax o r spelling errors. Electronically signed by: Major Steward M.D. 03/05/2020 8:41 AM
[2020-03-05] MEDS ORDERED: POLYETHYLENE (MIRALAX) 17 GM PACK PO SCH (14:20)
[2020-03-05] MEDS ORDERED: POLYETHYLENE (MIRALAX) 17 GM PACK PO ONE (14:37)
--- NOTE | 2020-03-05 15:15 | Medical Student H&P ---
Date of Service March 05, 2020 Assessment & Plan (1) Constipation: Pt has had multiple issues of constipation and bloating post neobladder surgery which is usually treated with roughly one dose of Miralax. Pt tried one dose of Miralax on Thursday but did not have symptomatic relief. Today pt had a small bowel movement and has been passing gas which has relieved much of the bloating and discomfort the patient has been feeling. Start pt on a one to two doses of Miralax and increase dose incrementally if patient has no symptomatic relief. Safe to incrementally increase to roughly 10 doses if needed. (2) Right groin pain: Pt has noticed constant right groin pain since the neobladder surgery which has made it difficult to carry out daily activities. Pain seems to get worse with constipation and UTI symptoms. Pain is most likely muscular in origin from a prolonged hip flexion and abduction maintained during neobladder surgery. Pt was instructed on adductor stretches to perform. If pain continuous and is not relieved by stretching consider follow up with neurology to assess for potential nerve damage/irritation sustained form neobladder surgery. (3) Abdominal pain: Pt's pain seems to coincide with feelings of constipation. Treat constipation as indicated with Miralax and assess if pain improves. (4) Abnormal urinalysis: Pt had 1+ protein, 2+ blood, 3+ leukocyte esterase, and 1+ bacteria on UA. Pt also indicated he had chills on Thursday but denies any fever or pain on urination that is not associated with the usual irritation that results from the incisions at the urethral head sustained from the neobladder surgery. Pt is currently being treated with Zosyn as urine culture results are pending. Wait until urine culture results are back and reassess antibiotic treatment. If susceptible to oral antibiotic, transition the patient from Zosyn to oral antibiotic to decrease hospital stay if possible. (5) Hydronephrosis: Left sided hydroureteronephrosis with three non obstructing calculi and urethral thickening of the left ureter were found on abdominal/pelvic CT. Pt was seen by urology today but they are planning on seeing him tomorrow. Confirm urology consult tomorrow and review past CT scans to see if hydroureteronephrosis is a new onset problem post neobladder surgery. Admission and Anticipated Discharge Date Admission Date: March 05, 2020 History of Present Illness Primary Care Provider: Morro De Guzman CC: Pt is a 49 y/o male with a history of Stage II bladder cancer status post chemotherapy, cystectomy, prostatectomy, and neobladder surgery presented yesterday with abdominal pain, post-prandial bilious vomiting, constipation, groin pain, sciatic pain, and hydrouteronephrosis with cystitis. HPI: Pt had bladder cancer first discovered in June 2019, started chemotherapy in August, and had removal of bladder and prostate with neobladder surgery at the end of November/early December. Following the surgery, the pt has had on and off groin pain accompanied by moderate constipation. Groin pain has resolved with antibiotics before. Two weeks following surgery, the first catheter fell out and the second catheter got infected which resolved iwht antibiotics and removal of stents. 2-3 weeks following the stent removal, the pt had groin pain with an inability to raise right leg with resolved with antibiotics. 3 weeks ago pt's course of antibiotics for groin pain was completed which resulted in a recurrence of the similar groin pain, constipation, oliguira, and occasional chills with the patient noticing less mucous in his urine. Two nights ago, the pt had chills and some bloating and took one dose of miralax and ate pizza which resulted in stabbing pain in the abdomen. Yesterday morning (03/04/20) the pt tried a depository resulting in a small bowel movement that had a lot of mucous and some small solid consistency. Pt tried taking magnesium citrate to relieve constipation. Within 15-20 minutes the pt began to feel nauseous and vomited a yellow brown substance. Pt subsequently went to the ED where a UA found WBC, RBC, and bacteria and the patient was subsequently treated for a UTI with Zosyn and a urine culture was ordered. Pt also had a abdominal/pelvic CT which discovered left sided hydrouteronephrosis, 3 nonobstructing 4 mm calculi, and abrupt narrowing of the distal left ureter resulting in a Urology consult. CT also found a low grade small bowel obstruction and well as a small mass on the adrenal gland consistent in size from prior radiology findings this year. Pt was given Lovenox for DVT prophylaxis. Pt was given morphine for pain yesterday. pt was able to pass some urine today and had a small bowel movement in the afternoon. Pt has been ambulatory. Allergies Allergy/AdvReac Type Severity Reaction Status Date / Time No Known Allergies Allergy Verified 03/04/20 22:37 Home Medications Home Medications Medication Instructions Recorded Confirmed Type acetaminophen [Tylenol Extra 1,000 mg PO Q6H PRN 12/20/19 03/04/20 History Strength] Marijuana Flower/Vap 2 dose INHALATION UD PRN 03/04/20 03/05/20 History Tintress Oil 1 dose PO BID 03/04/20 03/04/20 History Past Med/Surg History Medical History Anxiety Medical cannabis HS/PRN Chronic back pain D/T HISTORY OF HERNIATED LOWER BACK Current smoker Hematuria Herniated disc HAD THIS FOR OVER 20 YEARS CHRONIC BACK PAIN AND USES MEDICAL MARIJUANNA AND WILL BRING IN CARD Insomnia Medical marijuana use Port-A-Cath in place (09/02/19) Mediport Insertion Dr. Raymundo 09-02-19 Restless leg syndrome Surgical History (Updated 03/05/20 @ 17:44 by Barron Bowman) H/O total cystectomy History of bladder replacement History of cystoscopy BLADDER TUMOR REMOVED 07/21/19 (+CANCER) History of prostatectomy Family History Grandfather Cancer Social History Smoking Status: Current every day smoker Tobacco Type: Cigarettes Cigarettes Per Day: 10-12; Second Hand Exposure: Yes; Hx Alcohol Use: Yes Alcohol type: beer Hx Substance Use: Yes Last Used Substance Other:: HAS A MEDICAL MARIJUANNA CARD Substance Use Type Other:: medical marijuana card Preferred Language: Citizen Of [place] Communication Ability: Effective Juice Standardizer Required: No Beliefs That Will Affect Care: None marital status: Current Living Situation: Spouse current occupational status: employed current occupation: [employer] Feels Safe at Home: Yes Safety Concerns: Feels Safe At This Time Review of Systems GI: Pain with urination at urethral head at incision site from November/December prostatectomy, cystectomy, and neobladder formation. Decreased appetite. No chills currently but has frequently chills with the most recent this Thursday (03/02/20). Denies fatigue, fever Denies dyspnea, SOB Additional Comments: Denies chest pain, palpitations, syncope Abdominal pain is a dull 7/10 pain that fluctuates to a sharp pain of increased severity with touch, movement, and cough. Minimal bloating. Last bowel movement was the morning of 03/04/20 and had a lot of mucous with some small solid consistence. Pt denies vomiting, nausea today. Yellow brown vomiting yesterday. Pain radiating down back of right leg with movement. Constant right lower groin pain. Denies any skin discoloration or rashes. Denies changes in mood. Physical Exam Constitutional: healthy appearing Eyes: Eyes equal and reactive to light ENMT: No tonsillar hypertrophy, erythema Respiratory: normal respiratory effort, lungs clear to auscultation Cardiovascular: RRR with no murmur, rubs, clicks, or gallops. No carotid bruits. Normal capillary refill. No peripheral edema. Gastrointestinal (Abdomen): Abdominal guarding in all four quadrants. Minimal bowel sounds. Pain with palpation in all four quadrants especially in left lower quadrant and right upper quadrant. Musculoskeletal: Pain with right leg raise. Right groin pain with palpation of the length of the gracilis and adductor muscles. Ben's sign negative Neurologic: Biceps, brachioradialis, triceps, patellar, and Achilles reflexes 1+ bilaterally. Psychiatric: Euthymic affect Genitourinary: Mild CVA tenderness. No erythema or discharge at urethral head at incision site. Results & Data ([facility]) Vital Signs (Past 12 Hours) Vital Signs Temp Pulse Pulse Resp BP Pulse Ox 03/05/20 06:42 37.4 C 70 20 113/68 98 03/05/20 03:30 36.8 C 71 18 119/79 97 Code Status & VTE Plan VTE Prophylaxis Plan VTE Prophylaxis will be ordered: Yes Supervising Attestation I personally examined the patient and verified all ag points of history and exam, discussed case, and agree with decision making with Zen Bowman MS2 feeling better - had some flatus and BM and belly doing better. does note several days of chills and sweats prior to admission as well. R groin pain. CT noted vitals noted nad heent nc at mmm breathing unlabored no accessory muscles good effort skin no rashes no pallor or icterus. R leg adductor muscles VERY tendner/high tone/decreased ROM - reproduces pain directly. no pain on internal rotation at hip abdominal pain - bowel related. hx most c/w constipation - and improving w flatus and BM. bowel regimen, follow possible UTI/sepsis picture on admission (WBC only true SIRS criteria however. HR and temp close to cutoffs, but not) - main sx concerning were chills and sweats; also wbc fairly elevated. clinically improving. await cutlure then hopefully can streamline abx R groin pain - exam shows very tight adductor muscles (almost can linearly palpate gracilis muscle down it's length, and doing so causes reproduction of his pain almost entirely). taught stretches. consider OMT although somewhat of a tough muscle to access. diclofenac gel hydronephrosis - appreciate urology input. pt notes that he's had many imaging studies since surgery - asking for records - ?new vs old otherwise as above
--- NOTE | 2020-03-05 19:14 | Billing Data ---
Date of Service March 05, 2020 Coding Level of Care Code 76840 Subseq Hosp Care Lvl 3
[2020-03-05] MEDS: DICLOFENAC SOD 1% GEL 100 GM TUBE EXT SCH (21:13)
[2020-03-06] MEDS ORDERED: HEPARIN 100 UNIT/ML 5ML FLUSH FLUSH PRN (00:46)
--- NOTE | 2020-03-06 04:30 | Billing Data ---
Date of Service March 06, 2020 Coding Level of Care Code 48555 Initial Inpt Care Lvl 2
[2020-03-06] MEDS: PIPERACILLIN/TAZOBACTAM 3.375 GM in DEXTROSE 5% 100 ML IV SCH ×2 (05:51→13:33)
[2020-03-06 06:32] LABS: Basophils # (auto) 0.04 K/uL (0-0.2); Basophils % (auto) 0.3 %; Eosinophils # (auto) 0.24 K/uL (0-0.5); Eosinophils % (auto) 1.8 %; Hematocrit (blood only) 33.9 % (42-52); Immature Granulocytes # (auto) 0.04 K/uL (0.00-0.02); Immature Granulocytes % (auto) 0.3 %; Lymphocytes # (auto) 1.91 K/uL (1.2-3.4); Lymphocytes % (auto) 14.6 %; Mean Corpuscular Hemoglobin 26.8 pg (25-34); Mean Corpuscular Hgb Conc 32.4 g/dL (32-36); Mean Corpuscular Volume 82.5 fL (80-100); Mean Platelet Volume 8.5 fL (7.4-10.4); Monocytes # (auto) 1.01 K/uL (0.11-0.59); Monocytes % (auto) 7.7 %; Neutrophils # (auto) 9.82 K/uL (1.4-6.5); Neutrophils % (auto) 75.3 %; Platelet Count 507 K/uL (130-400); RDW Coefficient of Variation 16.4 % (11.5-14.5); RDW Standard Deviation 49.7 fL (36.4-46.3); Red Blood Count 4.11 M/uL (4.7-6.1); White Blood Count 13.06 K/uL (4.8-10.8)
[2020-03-06 07:08] LABS: Creatinine Clr Calc Pharmacy 61.7 ml/min; Est GFR (African American) 91.9; Est GFR (Non-African American) 79.3
--- NOTE | 2020-03-06 08:07 | Urology Progress Note ---
Date of Service March 06, 2020 Assessment & Plan (1) Hydronephrosis: (2) Primary bladder malignant neoplasm: 3-month status post neobladder after radical cystoprostatectomy Hydronephrosis Infection Continue Zosyn Continue supportive care No acute intervention required given his clinical improvement Continue to monitor Ultimately may require some manipulation of the left side via nephrostomy tube plus or minus dilation secondary to the hydronephrosis but we can manage that as an outpatient Admission and Anticipated Discharge Date Admission Date: March 05, 2020 Subjective Subjectively feels well He is much better today than he was yesterday Decreased pain Okay urine output Physical Exam Physical Exam: Incisions healing nicely No flank pain Nondistended Constitutional: well developed and well nourished Respiratory: no respiratory distress Cardiovascular: Extremities: no pedal edema Gastrointestinal (Abdomen): Inspection/Auscultation: abdomen normal to inspection Results & Data ([facility]) Vital Signs (Past 12 Hours) Vital Signs Temp Pulse Resp BP Pulse Ox 03/06/20 07:30 36.3 C L 59 L 18 107/68 99 03/05/20 23:52 36.9 C 66 14 108/71 98 PG Care Time/CCT Total # of Minutes Spent Total Time Spent with Patient: Total time spent is greater than 50% in coordination of care (as documented) at patient's floor/unit and/or counseling patient: Coding Level of Care Code 01803 Subseq Hosp Care Lvl 2 Diagnoses Hydronephrosis N13.30 Primary bladder malignant neoplasm C67.9
[2020-03-06] MEDS: KETOROLAC TROMETHAMINE 15 MG/ML VIAL IV PRN (08:23)
[2020-03-06] MEDS: ENOXAPARIN INJ 40 MG/0.4 ML SYR SQ SCH (08:24)
[2020-03-06] MEDS: DICLOFENAC SOD 1% GEL 100 GM TUBE EXT SCH ×3 (08:25→17:56)
--- NOTE | 2020-03-06 14:09 | Med Student Discharge Summary ---
Date of Service March 06, 2020 Admission HPI Per Admitting Provider CC: Pt is a 49 y/o male with a history of Stage II bladder cancer status post chemotherapy, cystectomy, prostatectomy, and neobladder surgery presented yesterday with abdominal pain, post-prandial bilious vomiting, constipation, groin pain, sciatic pain, and hydrouteronephrosis with cystitis. HPI: Pt had bladder cancer first discovered in June 2019, started chemotherapy in August, and had removal of bladder and prostate with neobladder surgery at the end of November/early December. Following the surgery, the pt has had on and off groin pain accompanied by moderate constipation. Groin pain has resolved with antibiotics before. Two weeks following surgery, the first catheter fell out and the second catheter got infected which resolved iwht antibiotics and removal of stents. 2-3 weeks following the stent removal, the pt had groin pain with an inability to raise right leg with resolved with antibiotics. 3 weeks ago pt's course of antibiotics for groin pain was completed which resulted in a recurrence of the similar groin pain, constipation, oliguira, and occasional chills with the patient noticing less mucous in his urine. Two nights ago, the pt had chills and some bloating and took one dose of miralax and ate pizza which resulted in stabbing pain in the abdomen. Yesterday morning (03/04/20) the pt tried a depository resulting in a small bowel movement that had a lot of mucous and some small solid consistency. Pt tried taking magnesium citrate to relieve constipation. Within 15-20 minutes the pt began to feel nauseous and vomited a yellow brown substance. Pt subsequently went to the ED where a UA found WBC, RBC, and bacteria and the patient was subsequently treated for a UTI with Zosyn and a urine culture was ordered. Pt also had a abdominal/pelvic CT which discovered left sided hydrouteronephrosis, 3 nonobstructing 4 mm calculi, and abrupt narrowing of the distal left ureter resulting in a Urology consult. CT also found a low grade small bowel obstruction and well as a small mass on the adrenal gland consistent in size from prior radiology findings this year. Pt was given Lovenox for DVT prophylaxis. Pt was given morphine for pain yesterday. Pt was able to pass some urine today and had a small bowel movement in the afternoon. Pt has been ambulatory. Admission Exam (Per Admitting) Constitutional WD/WN, vitals as above Eyes PERRL Respiratory normal respiratory effort, lungs clear to auscultation Cardiovascular RRR, no murmur, no edema Gastrointestinal (Abdomen) Loud bowel sounds in all four quadrants. Moderate abdominal guarding in all four quadrants. Minor pain with palpitation. Neurologic patellar DTR's 2+ bilat, sensation intact Psychiatric Euthymic affect Discharge Data Consultations 03/05/20 01:16 ED Decision to Admit Stat 03/05/20 03:03 Consult Urology Routine 03/06/20 05:53 Consult Health Information Management Stat Hospital Course (1) Constipation: 2-3 doses of Miralax has resulted in a multiple normal bowel movements, relief of bloating, decreased nausea, and increased appetite. Continue use of up to 5 doses of Miralax starting with 1 dose and incrementally increasing dosage if constipation and bloating occurs again. If 5 doses do not resolve symptoms contact PCP and seek treatment. (2) Abdominal pain: Abdominal pain has subsided to a 4/10 after bowel movement. Continue use of up to 5 doses of Miralax starting with 1 dose and incrementally increasing dosage if constipation and bloating occurs again. If 5 doses do not resolve symptoms contact PCP and seek treatment. (3) Complicated urinary tract infection: Culture has indicated possible Pseudomonas with unknown sensitivities. Pt will be given oral ciprofloxacin for the next 5 days for a total of 7 days of antibiotic treatment. If sensitivities indicate a ciprofloxacin resistance then pt will be contacted and antibiotic will be adjusted. If pt begins to have chills and fevers again, pt needs to return for treatment immediately. (4) Right groin pain: Diclofenac gel reduced groin pain to a 4/10. Order diclofenac gel for use as needed by pt and instruct pt to continue adductor stretches. Consult physical therapy if pain persists or worsens. (5) Hydroureteronephrosis: Abdominal CT indicated hydroureteronephrosis of the left kidney with distal ureter stricture. Compare recent abdominal CT with abdominal CT post- neobladder surgery. Consult with urology for possible manipulation of the left side via nephrostomy tube plus or minus dilation secondary to the hydronephrosis as an outpatient. Discharge Plan Discharge Items Patient Disposition: Home - Self-Care Reason For Visit: prolonged post op ileus, hydroureteronephrosis Discharge Diagnosis: hydronephrosis Activity: Per Instructions section Non-emergency contact: Primary Care Provider and Urologist Call non-emergency contact if: your symptoms worsen Follow-up/Referrals: Morro De Guzman M.D. [Primary Care Provider] - 03/14/20 9:30 am (APPT WITH DR HESS) Diet: Regular Addtl Attending Provider Instructions: Fluid back up at the kidney (hydronephrosis) You had a CT of your abdomen and pelvis and this showed that you had urine backed up. There are several causes for this including obstruction and reflux. You were seen by the Urologist while you were here. You will need to follow up with your urologist. Infection You had an infection of your urine. The infection was being treated with IV antibiotics initially. We switched you to an oral antibiotic. We did not have the sensitivity and will call you if we need to change your management. As we mentioned take it easy over the next couple weeks Constipation you had not had a bowel movement for several days after coming into the hospital. As we discussed you should take Miralax based on the bowel movements. You should target 1-2 soft bowel movements. Right leg pain You had leg pain that occurred since having your urologic procedure. We were able to localize this to a the gracilis muscle. You can continue with the stretches that we reviewed and demonstrated for you. You can aso continue to use the Voltaren gel 4 times a day. Pending Studies at Discharge: Yes Studies:: urine sensitivities Stand-Alone Forms: My [facility], Smoking Cessation Medications and DC Order Prescriptions: New ciprofloxacin HCl 500 mg tablet 500 mg PO Q12H 5 Days Qty: 10 RF: 0 diclofenac sodium [Voltaren] 1 % gel 2 g topical QID Qty: 100 RF: 0 Continued Marijuana Flower/Vap 2 dose inhalation UD PRN (Reason: Back Pain) RF: 0 Tintress Oil 1 dose PO BID RF: 0 acetaminophen [Tylenol Extra Strength] 500 mg Tablet 1,000 mg PO Q6H PRN (Reason: Pain) RF: 0 Discharge Orders: Discharge Order (Routine); Ordered 03/06/20 Ordered By: John Schuster Admission Data Admit Date/Time: 03/05/20 01:34 Attending Provider: Barron Hinton Admit Provider: Carlos Spencer Primary Care Provider: Morro De Guzman Other Providers: Jovanni Bansal ; Leonidas Dominguez Other Interventions: Discharge Summary Assessment (RN) Last Done: 03/06/20 13:17 Supervising Attestation I personally examined the patient and verified all ag points of history and exam, discussed case, and agree with decision making with Zen Bowman MS2 feeling better- BMs made belly feel better, no further chills/sweats. groin feeling better vitals noted nad heent nc at mmm breathing unlabored no accessory muscles good effort skin no rashes no pallor or icterus. abdominal pain - bowel related. hx most c/w constipation - improving w bowel regimen. discussed ability to keep this going at home possible UTI/sepsis picture on admission (WBC only true SIRS criteria however. HR and temp close to cutoffs, but not) - main sx concerning were chills and sweats; also wbc fairly elevated. clinically improving. grew pseudomonas - sensitivities pending. he otherwise appears stable for home and wants to go home - discussed risks/benefits of empiric treatment vs staying for final ID&S. locally we actually show a surprsingly high prevelance of camara-sensitive pseudomonas and likely will be sensitive to cipro. discussed connective tissue risks. he understands risk/benefit and wants to go home- we'll treat empirically w cipro and follow up on sensitivities -he's aware of a small but real chance of needing brought back for IV abx R groin pain - exam shows very tight adductor muscles (almost can linearly palpate gracilis muscle down it's length, and doing so causes reproduction of his pain almost entirely). taught stretches. consider OMT although somewhat of a tough muscle to access. diclofenac gel hydronephrosis - appreciate urology input. pt notes that he's had many imaging studies since surgery - asking for records - ?new vs old otherwise as above. stable for home. >30mins
--- NOTE | 2020-03-06 19:24 | Billing Data ---
Date of Service March 06, 2020 Coding Level of Care Code D/C Day Management >30 mins
== END 2020-03-06 17:55 | disposition home or self-care (01) | DRG 690 ==
LOC: ED 20:50 → 3N 03-05 01:34 → SUATTDRO 03-05 01:34 → 3N 03-05 02:42